=== PATIENT | female | born 1930 | race Caucasian/White ===

== ENCOUNTER 2018-07-29 03:14 | Emergency (ER) | payer MEDICARE ==
[2018-07-29] MEDS ORDERED: ONDANSETRON HCL 4 MG/2 ML VIAL ONE (03:33)
[2018-07-29] MEDS ORDERED: FENTANYL CITRATE PF 50 MCG/1 ML 2ML VIAL ONE (03:34)
== END 2018-07-29 05:48 | disposition home or self-care (01) ==
LOC: EDH 03:14
DX: S42.202A Unspecified fracture of upper end of left humerus, initial encounter for closed fracture (principal); S09.90XA Unspecified injury of head, initial encounter; I10 Essential (primary) hypertension; Z85.3 Personal history of malignant neoplasm of breast; Z85.850 Personal history of malignant neoplasm of thyroid; Z90.710 Acquired absence of both cervix and uterus; Z90.11 Acquired absence of right breast and nipple; W01.198A Fall on same level from slipping, tripping and stumbling with subsequent striking against other object, initial encounter; Y93.89 Activity, other specified; Y92.89 Other specified places as the place of occurrence of the external cause; Y99.8 Other external cause status
CPT/HCPCS: 70450; 73030; 96374; 96375; 99283; J2405; J3010